=== PATIENT | female | born 1970 | race Caucasian/White ===

== ENCOUNTER 2022-03-04 13:40 | Emergency (ER) | payer MEDICARE, OTHER ==
[~2022-03-04 13:40] MED LIST: ALDACTONE50 MG PO; ASPIRIN CHEWABL81 MG PO; CELEBREX 200MG200 MG PO; CETIRIZINE HCL10 MG PO; COLACE 100MG C100 MG PO; CYMBALTA 30 MG30 MG PO; D3-5050000 UNIT PO; FEOSOL325 MG PO; FLONASE 0.05% N16 GM; NORCO 7.5-3251 EACH PO; ONDANSETRON ODT8 MG PO; SINGULAIR10 MG PO; VENTOLIN HFA 66.7 GM INH; ZANAFLEX4 MG PO
[2022-03-04] MEDS ORDERED: AMOX TR-K CLV1 EAC4 PO (14:28)
== END 2022-03-04 15:11 | disposition home or self-care (01) ==
LOC: ER1 13:40
DX: K02.9 Dental caries, unspecified (principal); M54.2 Cervicalgia; F17.200 Nicotine dependence, unspecified, uncomplicated
CPT/HCPCS: 96372; 99282; J1885